=== PATIENT | female | born 1975 | race Caucasian/White ===

== ENCOUNTER 2016-07-18 08:15 | Emergency (ER) | payer BC ==
[~2016-07-18] VITALS: Ht 157.5 cm; Wt 112.0 kg
[~2016-07-18 08:15] MED LIST: ALEVE220 MG PO; AMOXICILLIN500 M1 PO; PERCOCET 5/31 TABLET PO; PREMARIN0.3 MG PO; PROAIR HFA8.5 GM IH; PROMETHAZINE HC25 M1 PO; ULTRAM50 MG PO
[2016-07-18] MEDS ORDERED: VITAMIN D2000 UNI1 PO (09:01)
[2016-07-18] MEDS ORDERED: ROBITUSSIN AC,T10 ML PO (09:03)
[2016-07-18] MEDS ORDERED: TESSALON200 MG PO (09:19)
[2016-07-18 10:24] VITALS: BP 137/79
== END 2016-07-18 10:23 | disposition home or self-care (01) ==
LOC: EME 08:15
DX: J06.9 Acute upper respiratory infection, unspecified (principal); J04.0 Acute laryngitis; R05 Cough; F17.200 Nicotine dependence, unspecified, uncomplicated
CPT/HCPCS: 71020; 94640; 94640 76; 99281; 99284; J1100

== ENCOUNTER 2016-10-11 16:37 | Emergency (ER) | payer BC ==
[~2016-10-11] VITALS: Ht 157.5 cm; Wt 99.2 kg
[~2016-10-11 16:37] MED LIST changes: +ROBITUSSIN AC,T10 ML PO; +TESSALON200 MG PO; +VITAMIN D2000 UNI1 PO
[2016-10-11 17:24] LABS: HEMATOCRIT 44.1 % (36.0-46.0); MCH 29.6 PG (29.0-34.0); MCHC 33.1 G/DL (30.0-36.0); MCV 89.5 FL (83-99); MEAN PLAT.VOLUME 9.6 uM^3 (9.5-12.4); PLATELET COUNT 510 K/uL (156-360); RBC DIS.WIDTH-CV 13.1 % (11.8-14.6); RED BLOOD COUNT 4.93 M/uL (3.80-5.20); WHITE BLOOD COUNT 16.6 K/uL (4.1-10.2)
[2016-10-11 17:33] LABS: CHLORIDE 106 mEq/L (99-109); POTASSIUM 3.6 mEq/L (3.7-5.4); SODIUM 140 mEq/L (136-147)
[2016-10-11 17:35] LABS: GLUCOSE 138 mg/dL (70-99)
[2016-10-11 17:36] LABS: ANION GAP 13 MEQ/L (2-14)
[2016-10-11 17:38] LABS: SERUM ETHYL ALCOHOL < 10 mg/dL
[2016-10-11 17:39] LABS: GFR ESTIMATE (CALCULATED) > 59 mL/min/
[2016-10-11 17:40] LABS: UREA NITROGEN (BUN) 7 mg/dL (9-23)
[2016-10-11 17:49] LABS: QUANTITATIVE HCG < 4.0 MIU/ML
[2016-10-11 17:58] LABS: BASOPHIL COUNT 0.1 K/uL (0-0.1); EOSINOPHIL (%) 0.3 % (0-5); EOSINOPHIL COUNT 0.1 K/uL (0-0.3); HEMATOCRIT 44.5 % (36.0-46.0); IMMATURE GRANULOCYTE (%) 0.7 % (0.0-0.7); IMMATURE GRANULOCYTE COUNT 0.1 K/uL; INSTRUMENT ABS NEUTROPHIL CT 12.4 K/uL; LYMPHOCYTE COUNT 3.3 K/uL (1.0-2.8); MCH 29.3 PG (29.0-34.0); MCHC 32.8 G/DL (30.0-36.0); MCV 89.4 FL (83-99); MEAN PLAT.VOLUME 9.7 uM^3 (9.5-12.4); MONOCYTE (%) 4.3 % (3-12); MONOCYTE COUNT 0.7 K/uL (0-0.8); NEUTROPHIL (%) 74.2 % (45-76); NEUTROPHIL COUNT 12.4 K/uL (1.8-6.4); PLATELET COUNT 520 K/uL (156-360); RBC DIS.WIDTH-CV 13.1 % (11.8-14.6); RBC DIS.WIDTH-SD 43.2 % (39-53); RED BLOOD COUNT 4.98 M/uL (3.80-5.20); WHITE BLOOD COUNT 16.7 K/uL (4.1-10.2)
[2016-10-11 18:12] LABS: TOTAL BILIRUBIN 0.3 mg/dL (0.0-1.0)
[2016-10-11 18:13] LABS: ALKALINE PHOSPHATASE 106 IU/L (3-129)
[2016-10-11 18:15] LABS: DIRECT BILIRUBIN 0.1 mg/dL (0.0-0.3)
[2016-10-11] MEDS ORDERED: ATIVAN0.5 MG PO (18:20)
[2016-10-11 18:21] LABS: AMPHETAMINE NEGATIVE (500 ng/mL); BARBITURATES NEGATIVE (200 ng/mL); BENZODIAZEPINES NEGATIVE (150 ng/mL); COCAINE NEGATIVE (150 ng/mL); INTERNAL CONTROLS VALID? YES; METHADONE NEGATIVE (200 ng/mL); METHAMPHETAMINE NEGATIVE (500 ng/mL); OPIATES (MORPHINE) NEGATIVE (100 ng/mL); OXYCODONE NEGATIVE (100 ng/mL); PHENCYCLIDINE NEGATIVE (25 ng/mL); PROPOXYPHENE NEGATIVE (300 ng/mL); THC CANNABINOIDS NEGATIVE (50 ng/mL); TRICYCLIC ANTIDEPRESSANTS NEGATIVE (300 ng/mL)
[2016-10-11 18:59] VITALS: BP 132/87
== END 2016-10-11 19:00 | disposition home or self-care (01) ==
LOC: EME 16:37
PROVIDERS: Emergency Medicine
DX: F41.0 Panic disorder [episodic paroxysmal anxiety] (principal); D72.829 Elevated white blood cell count, unspecified; J45.909 Unspecified asthma, uncomplicated; F17.200 Nicotine dependence, unspecified, uncomplicated
CPT/HCPCS: 80048; 80076; 84702; 85025; 85025 91; 85027; 90839; 99281; 99284; G0480

== ENCOUNTER 2017-08-08 10:40 | Emergency (ER) | payer BC ==
[~2017-08-08] VITALS: Ht 154.9 cm; Wt 101.0 kg
[~2017-08-08 10:40] MED LIST changes: +ATIVAN0.5 MG PO
[2017-08-08 11:32] LABS: HEMATOCRIT 41.5 % (36.0-46.0); HEMOGLOBIN 14.2 G/DL (11.9-15.5); MCH 30.1 PG (29.0-34.0); MCHC 34.2 G/DL (30.0-36.0); MCV 88.1 FL (83-99); PLATELET COUNT 446 K/uL (156-360); RBC DIS.WIDTH-CV 13.5 % (11.8-14.6); RED BLOOD COUNT 4.71 M/uL (3.80-5.20); WHITE BLOOD COUNT 18.2 K/uL (4.1-10.2)
[2017-08-08 11:46] LABS: CHLORIDE 105 mEq/L (99-109); SODIUM 138 mEq/L (136-147)
[2017-08-08 11:48] LABS: GLUCOSE 125 mg/dL (70-99)
[2017-08-08 11:52] LABS: CREATININE 0.7 mg/dL (0.6-1.3); GFR ESTIMATE (CALCULATED) > 59 mL/min/
[2017-08-08 11:53] LABS: UREA NITROGEN (BUN) 11 mg/dL (9-23)
[2017-08-08 11:54] LABS: TROP-I INTERPRETATION NEGATIVE; TROPONIN-I 0.02 ng/mL (0.0-0.30)
[2017-08-08 15:05] LABS: TROP-I INTERPRETATION NEGATIVE; TROPONIN-I 0.02 ng/mL (0.0-0.30)
[2017-08-08 15:26] VITALS: BP 132/63
== END 2017-08-08 15:27 | disposition home or self-care (01) ==
LOC: EME 10:40
PROVIDERS: Physician Assistant
DX: R07.89 Other chest pain (principal); I10 Essential (primary) hypertension; E11.9 Type 2 diabetes mellitus without complications; E78.5 Hyperlipidemia, unspecified; J45.909 Unspecified asthma, uncomplicated; F41.9 Anxiety disorder, unspecified; F17.200 Nicotine dependence, unspecified, uncomplicated; Z90.49 Acquired absence of other specified parts of digestive tract
CPT/HCPCS: 71046; 80048; 84484; 85027; 93005; 99281; 99284